=== PATIENT | female | born 1985 | race Caucasian/White ===

== ENCOUNTER → 2018-10-29 | Outpatient (CLI) | payer SELFPAY ==
[~2018-10-29] MED LIST: ACYC800 PO; Bactrim Ds Tab1 EACH PO; CEPH500 PO; CETI5 PO; CITA20 PO; FAMO20 PO; IBUP600 PO; MELO7.5 PO; MEPE50 PO; ORTHO NOVUM PO; SULTRIDS PO; TRAM50 PO
[2018-11-02 01:06] LABS: CHLAMYDIA BY NAA Negative (Negative); GONOCOCCUS BY NAA Negative (Negative); TRICH VAG BY NAA Negative (Negative)
== END | disposition home or self-care (01) ==
LOC: LAB EV 19:44 → LAB SHORT 19:44
PROVIDERS: Physician Assistant Surgical
DX: N89.8 Other specified noninflammatory disorders of vagina (principal)
CPT/HCPCS: 87070; 87205; 87491; 87591; 87661

== ENCOUNTER 2020-07-22 17:36 | Emergency (ER) | payer OTHER ==
[~2020-07-22] VITALS: Ht 162.6 cm; Wt 158.8 kg
[2020-07-22] MEDS ORDERED: Percocet 5-3251 EACH PO (20:04)
[2020-07-24] MEDS ORDERED: Percocet 5-3251 EACH PO (17:53)
== END 2020-07-22 20:20 | disposition home or self-care (01) ==
LOC: ER 17:36
DX: M25.561 Pain in right knee (principal); Z88.5 Allergy status to narcotic agent
CPT/HCPCS: 73562-RT; 81025; 99283-25; A9270